=== PATIENT | male | born 1985 | race Caucasian/White ===

== ENCOUNTER 2019-05-31 13:11 | Emergency (ER) | payer OTHER ==
--- NOTE | 2019-05-31 13:16 | PDOC ---
Rapid Medical Evaluation Time Seen by Provider: 05/31/19 13:14 Medical Evaluation: Allergies Allergy/AdvReac Type Severity Reaction Status Date / Time No Known Allergies Allergy Verified 07/12/15 18:58 05/31/19 13:14 Pt presents with R knee pain for two weeks after colliding with another person playing soccer. He now admits to bruising Exam: ambulatory, FROM of R knee Orders: Nothing Pt to proceed to the ER for further evaluation Discharge Disposition - Diagnosis Knee pain Qualifiers: Chronicity: acute Laterality: right Qualified Code(s): M25.561 - Pain in right knee - Referrals - Patient Instructions - Post Discharge Activity
[2019-05-31 13:18] VITALS: BP 114/67; PULSE 54; TEMP 98.1; BMI 30.7
--- NOTE | 2019-05-31 14:14 | PDOC ---
History of Present Illness - General Chief Complaint: Pain Stated Complaint: RT LEG PAIN Time Seen by Provider: 05/31/19 13:14 - History of Present Illness Initial Comments: 05/31/19 14:11 34-year-old male without comorbidities presents for evaluation of right knee pain. He states he was playing soccer 2 weeks ago and contused his knee into another player since that time he is having anterior medial knee pain Past History - Past Medical History Allergies/Adverse Reactions: Allergies Allergy/AdvReac Type Severity Reaction Status Date / Time No Known Allergies Allergy Verified 05/31/19 13:18 Home Medications: Ambulatory Orders Naproxen [Naprosyn -] 500 mg PO BID PRN #14 tablet 07/12/15 COPD: No - Suicide/Smoking/Psychosocial Hx Smoking History: Never smoked Have you smoked in the past 12 months: No Information on smoking cessation initiated: No Hx Alcohol Use: No Drug/Substance Use Hx: No Review of Systems - Review of Systems Musculoskeletal: Yes: Joint Pain *Physical Exam - Vital Signs Last Vital Signs Temp Pulse Resp BP Pulse Ox 98.1 F 54 L 17 114/67 100 05/31/19 13:15 05/31/19 13:15 05/31/19 13:15 05/31/19 13:15 05/31/19 13:15 - Physical Exam Comments: 05/31/19 14:12 Knee skin color and temperature are normal. There is no palpable effusion. Range of motion is full and nonpainful. No medial or lateral joint line tenderness.Mild anterior tenderness about the mid portion of the patella. No patellofemoral crepitation. No evidence of instability. Thigh and calf are soft and nontender. There are no gross sensory motor deficits. Extensor mechanism is intact. ED Treatment Course - RADIOLOGY Radiology Studies Ordered: Category Date Time Status KNEE 3 POS-RIGHT [RAD] Stat Radiology 05/31/19 13:56 Taken Medical Decision Making - Medical Decision Making 05/31/19 14:13 X-rays of the right knee show no evidence of fracture trauma or destructive process. This is a knee contusion *DC/Admit/Observation/Transfer Diagnosis at time of Disposition: Contusion of right knee - Discharge Dispostion Disposition: HOME Condition at time of disposition: Stable Decision to Admit order: No - Referrals Referrals: Prasad Saeed DO [Staff Physician] - - Patient Instructions Additional Instructions: Tylenol and Motrin for pain. Return to the emergency room for worsening symptoms. Follow-up with orthopedic surgery without fail in 1-2 days for further evaluation and treatment options. - Post Discharge Activity
== END 2019-05-31 14:18 | disposition home or self-care (01) ==
LOC: JERFT 13:11
DX: S80.01XA Contusion of right knee, initial encounter (principal); W51.XXXA Accidental striking against or bumped into by another person, initial encounter; Y93.66 Activity, soccer; Y92.322 Soccer field as the place of occurrence of the external cause
CPT/HCPCS: 73562-TC-RT-FY; 99282-25